=== PATIENT | male | born 1950 ===

== ENCOUNTER 2021-12-25 16:52 | Inpatient (IN) | payer OTHER ==
[~2021-12-25] VITALS: Ht 180.3 cm; Wt 104.3 kg
[2021-12-30] MEDS ORDERED: VALSARTAN-HCTZ1 EAC1 PO (08:24)
[2021-12-30] MEDS ORDERED: ACID REDUCER20 M1 PO (08:24)
[2022-01-01] MEDS ORDERED: CLONAZEPAM0.5 MG (13:50)
[2022-01-01] MEDS ORDERED: LATANOPROST2.5 ML (13:51)
[2022-01-01] MEDS ORDERED: OMEPRAZOLE20 MG (13:51)
[2022-01-01] MEDS ORDERED: MIRTAZAPINE30 MG (13:51)
== END 2022-01-01 20:58 | disposition home or self-care (01) | DRG 376 ==
LOC: ADM 12-29 12:00 → O/R 12-31 06:12 → SURG 12-31 06:12 → EDSTATUS 12-31 12:00 → CIR.AMB 12-31 12:00 → SURG 12-31 13:05
PROVIDERS: ADMIT Colon & Rectal Surgery; ATTEND Colon & Rectal Surgery
PROC: 0DJD8ZZ Inspection of Lower Intestinal Tract, Via Natural or Artificial Opening Endoscopic (ICD-10-PCS; 2021-12-31)
PROC: 0DBP8ZZ Excision of Rectum, Via Natural or Artificial Opening Endoscopic (ICD-10-PCS; principal; 2021-12-31 12:00)
DX: C20 Malignant neoplasm of rectum (principal); Z20.822 Contact with and (suspected) exposure to COVID-19

== ENCOUNTER 2025-01-04 11:08 | Inpatient (IN) | payer OTHER ==
[~2025-01-04] VITALS: Ht 180.3 cm; Wt 108.9 kg
[~2025-01-04 11:08] MED LIST: ACID REDUCER20 M1 PO; CLONAZEPAM0.5 MG; LATANOPROST2.5 ML; MIRTAZAPINE30 MG; OMEPRAZOLE20 MG; VALSARTAN-HCTZ1 EAC1 PO
[2025-01-04] MEDS ORDERED: CLONAZEPAM0.5 MG PO (11:58)
[2025-01-10] MEDS ORDERED: CEFTRIAXONE SODIUM 2,000 MG VIAL ONE (08:37)
[2025-01-10] MEDS ORDERED: METRONIDAZOLE/SODIUM CHLORIDE 500 MG/100 ML PIGGYBACK IV ONE ×2 (08:37→09:30)
[2025-01-10] MEDS ORDERED: POVIDONE-IODINE 118 ML BOTT TOP ONE ×2 (09:03→09:30)
[2025-01-10] MEDS ORDERED: CEFTRIAXONE SODIUM 2,000 MG VIAL IV ONE (09:30)
[2025-01-10] MEDS ORDERED: HEMOSTATIC MATRIX 1 KIT KIT TOP ONE (09:30)
[2025-01-10] MEDS ORDERED: DIBUCAINE 30 GM TUBE RECTAL ONE (09:30)
[2025-01-10] MEDS ORDERED: SUGAMMADEX SODIUM 200 MG/2 ML VIAL IV ONE (10:37)
[2025-01-10] MEDS ORDERED: ONDANSETRON HCL 2 MG/ML VIAL IV PRN (12:15)
[2025-01-10] MEDS ORDERED: RINGERS SOLUTION,LACTATED 1,000 ML IV SCH (12:15)
[2025-01-10] MEDS ORDERED: OxyCODONE HCL 5 MG TABLET (ROXICODONE) PO PRN (12:15)
[2025-01-10] MEDS ORDERED: MORPHINE SULFATE 4 MG/ML CARTRIDGE IV PRN (12:15)
[2025-01-10] MEDS ORDERED: HYOSCYAMINE SULFATE 0.125 MG TAB.SUBL SL SCH (13:00)
[2025-01-10] MEDS ORDERED: ACETAMINOPHEN 500 MG GEL..CAP PO SCH (14:00)
[2025-01-10 15:06] LABS: BASO % 0.3 % (0.1-1.2); EOS # 0.06 (0.04-0.54); EOS % 0.5 % (0.7-7.0); LYMPH # 1.05 (1.18-3.74); LYMPH % 9.4 % (19.3-53.1); MEAN PLATELET VOLUME 11.30 fl (9.4-12.4); MONO # 0.63 (0.24-0.82); MONO % 5.6 % (4.7-12.5); NEUT # 9.41 (1.56-6.13); NEUT % 83.8 % (34.0-71.1); RED CELL DISTRIBUTION WIDTH 12.6 % (11.6-14.4)
[2025-01-10 15:44] VITALS: BP 132/81; O2SAT 96
[2025-01-10] MEDS ORDERED: METOCLOPRAMIDE HCL 5 MG/ML VIAL IV SCH (17:00)
[2025-01-10] MEDS ORDERED: CELECOXIB 200 MG CAPSULE PO SCH (17:00)
[2025-01-10] MEDS ORDERED: GABAPENTIN 300 MG CAPSULE PO SCH (17:00)
[2025-01-10] MEDS ORDERED: FAMOTIDINE/PF 20 MG/2 ML VIAL IV PUSH SCH (21:00)
[2025-01-11 01:29] VITALS: BP 113/74; O2SAT 98
[2025-01-11 06:20] LABS: BASO % 0.4 % (0.1-1.2); EOS # 0.45 (0.04-0.54); EOS % 4.4 % (0.7-7.0); LYMPH # 1.67 (1.18-3.74); LYMPH % 16.5 % (19.3-53.1); MEAN PLATELET VOLUME 11.30 fl (9.4-12.4); MONO # 0.93 (0.24-0.82); MONO % 9.2 % (4.7-12.5); NEUT # 7.01 (1.56-6.13); NEUT % 69.2 % (34.0-71.1); RED CELL DISTRIBUTION WIDTH 13.0 % (11.6-14.4)
[2025-01-11 07:11] LABS: BUN CREA RATIO 15.0 (7.0-25.0); CREATININE SERUM 1.03 mg/dL (0.70-1.30); GFR 70.21; GLUCOSE FASTING 84.0 mg/dL (65-100); OSMOLALITY SERUM 283.0 MOSM/KG (275-295)
[2025-01-11 08:10] VITALS: BP 136/84; O2SAT 96
[2025-01-11] MEDS ORDERED: LACTOBACILLUS ACIDOPHILUS 1 CAP CAP PO SCH (09:00)
[2025-01-11] MEDS ORDERED: LACTULOSE 20 G/30 ML BLIST.PACK PO SCH (09:00)
[2025-01-11] MEDS ORDERED: ENOXAPARIN SODIUM 40 MG/0.4 ML SYRINGE SUBCUTANEO SCH (17:00)
[2025-01-12] MEDS ORDERED: ENOXAPARIN SODIUM 40 MG/0.4 ML SYRINGE SUBCUTANEO SCH (09:00)
== END 2025-01-11 15:29 | disposition home or self-care (01) | DRG 376 ==
LOC: SURH 01-10 07:00 → O/R 01-10 08:00 → SURG 01-10 08:00 → SURH 01-10 11:06 → SURG 01-10 12:25
PROVIDERS: ADMIT Colon & Rectal Surgery; ATTEND Colon & Rectal Surgery
PROC: 0DJD8ZZ Inspection of Lower Intestinal Tract, Via Natural or Artificial Opening Endoscopic (ICD-10-PCS; 2025-01-10)
PROC: 0DBP8ZZ Excision of Rectum, Via Natural or Artificial Opening Endoscopic (ICD-10-PCS; principal; 2025-01-10 07:00)
DX: C20 Malignant neoplasm of rectum (principal); Z85.048 Personal history of other malignant neoplasm of rectum, rectosigmoid junction, and anus; Z86.0100 Personal history of colon polyps, unspecified; I11.9 Hypertensive heart disease without heart failure; R73.01 Impaired fasting glucose; F41.9 Anxiety disorder, unspecified
CPT/HCPCS: 0184T; 45300; 45123